=== PATIENT | female | born 1970 | race Caucasian/White ===

== ENCOUNTER 2016-07-02 15:52 | Emergency (ER) | payer BC ==
[~2016-07-02] VITALS: Ht 165.1 cm; Wt 71.9 kg
[2016-07-02 15:56] VITALS: Ht 165.1 cm; Wt 71.9 kg
--- OUTSIDE RECORDS SUMMARY | 2016-07-02 15:58 | XMS REPORT ---
Author Author Rusty Aguila Organization [employer] Address Unknown Phone Unavailable Care Team Providers Care Transportation Assistant Name Role Phone Rusty Aguila CP Unavailable Allergies No Known Allergies Problems Problem Type Condition ICD-9 Code Onset Dates Condition Status Assessment Depression with anxiety 300.4 Active Problem Cough variant asthma 493.82 Active Medications Medication Code System Code Instructions Start Date End Date Status Dosage Zolpidem Tartrate [facility] 640837 10 mg orally once a day (at bedtime) prn insomnia June 25, 2014 1 tab(s) Results No Known Results Summary Purpose [employer] Submission
--- OUTSIDE RECORDS SUMMARY | 2016-07-02 15:58 | XMS REPORT ---
Author Jeremias Ferrer Organization [employer] Address Unknown Phone Unavailable Care Team Providers Care Proofreader Name Role Phone Jeremias Aguila CP Unavailable Allergies No Known Allergies Problems Problem Type Condition ICD-9 Code Onset Dates Condition Status Problem Cough variant asthma 493.82 Active Medications No Known Medications Results No Known Results Summary Purpose [employer] Submission
--- OUTSIDE RECORDS SUMMARY | 2016-07-02 15:58 | XMS REPORT ---
Author Author Rusty Aguila Organization [employer] Address Unknown Phone Unavailable Care Team Providers Care Field Nurse Case Manager Name Role Phone Rusty Aguila CP Unavailable Allergies No Known Allergies Problems Problem Type Condition Code Onset Dates Condition Status Assessment Depression with anxiety 300.4 Active Problem Cough variant asthma 493.82 Active Medications Medication Code System Code Instructions Start Date End Date Status Dosage Zolpidem Tartrate [facility] 216146 10 mg orally once a day (at bedtime) prn insomnia June 25, 2014 1 tab(s) Results No Known Results Summary Purpose [employer] Submission
--- OUTSIDE RECORDS SUMMARY | 2016-07-02 15:58 | XMS REPORT ---
Author Author Rusty Aguila Organization [employer] Address Unknown Phone Unavailable Care Team Providers Care Stacker And Sorter Operator Name Role Phone Rusty Aguila Unavailable Allergies No Known Allergies Problems Problem Type Condition Code Onset Dates Condition Status Problem Cough variant asthma J45.991 Active Medications Medication Code System Code Instructions Start Date End Date Status Dosage Zolpidem Tartrate [facility] 047225 10 mg orally QHS PRN Feb 25, 2015 1 tab Results No Known Results Summary Purpose [employer] Submission
--- OUTSIDE RECORDS SUMMARY | 2016-07-02 15:58 | XMS REPORT ---
Author Author Benedict Lea Organization [employer] Address Unknown Phone Unavailable Care Team Providers Care [place] Name Role Phone Benedict Lea CP Unavailable Allergies, Adverse Reactions, Alerts Substance Reaction Event Type N.K.D.A. Info Not Available Non Drug Allergy Problems Problem Type Condition Code Onset Dates Condition Status Assessment Physical, Health Checkup Adult V70.0 Active Assessment Screening Lipids V77.91 Active Assessment Depression with anxiety 300.4 Active Medications Medication Code System Code Instructions Start Date End Date Status Dosage tylenol pm NDC 0 as directed Ibu-4 NDC 76527 not defined Zolpidem Tartrate NDC 527498 10 mg orally once a day (at bedtime) prn insomnia June 25, 2014 1 tab(s) TYLENOL NDC 0 500MG Oral 2 tab Procedures Procedure Coding System Code Date Comp Metabolic Panel CPT-4 88914 June 25, 2014 T4 Free CPT-4 82800 June 25, 2014 CBC with Differential WBC CPT-4 40917 June 25, 2014 Office New Level 3 CPT-4 74935 June 25, 2014 Lipid Panel CPT-4 57843 June 25, 2014 Hemoglobin A1C CPT-4 80806 June 25, 2014 Sed Rate CPT-4 62831 June 25, 2014 TSH CPT-4 81766 June 25, 2014 Vital Signs Date/Time: June 25, 2014 BMI 25.62 Index Height 65 in Weight 154 lbs Blood Pressure Systolic 127 mm Hg Cardiac Monitoring Heart Rate 111 /min Respiratory Rate 16 /min Temperature 97.9 F Blood Pressure Diastolic 82 mm Hg Results No Known Results Summary Purpose [employer] Submission
--- OUTSIDE RECORDS SUMMARY | 2016-07-02 15:58 | XMS REPORT ---
Author Author Rusty Aguila Organization [employer] Address Unknown Phone Unavailable Care Team Providers Care Machine Tool Mechanic Name Role Phone Rusty Aguila CP Unavailable Allergies No Known Allergies Problems Problem Type Condition Code Onset Dates Condition Status Problem Cough variant asthma J45.991 Active Medications No Known Medications Results No Known Results Summary Purpose [employer] Submission
--- OUTSIDE RECORDS SUMMARY | 2016-07-02 15:58 | XMS REPORT ---
Author Author Rusty Aguila Organization [employer] Address Unknown Phone Unavailable Care Team Providers Care Basting Machine Operator Name Role Phone Rusty Aguila CP Unavailable Allergies No Known Allergies Problems Problem Type Condition ICD-9 Code Onset Dates Condition Status Assessment Depression with anxiety 300.4 Active Problem Cough variant asthma 493.82 Active Medications Medication Code System Code Instructions Start Date End Date Status Dosage Zolpidem Tartrate [facility] 483616 10 mg orally once a day (at bedtime) prn insomnia June 25, 2014 1 tab(s) Results No Known Results Summary Purpose [employer] Submission
--- OUTSIDE RECORDS SUMMARY | 2016-07-02 15:58 | XMS REPORT ---
Author Author Rusty Aguila Organization [employer] Address Unknown Phone Unavailable Care Team Providers Care Hoop Puncher Name Role Phone Rusty Aguila CP Unavailable Allergies No Known Allergies Problems Problem Type Condition Code Onset Dates Condition Status Problem Cough variant asthma J45.991 Active Medications Medication Code System Code Instructions Start Date End Date Status Dosage Zolpidem Tartrate [facility] 820770 10 mg orally QHS PRN Feb 25, 2015 1 tab Results No Known Results Summary Purpose [employer] Submission
--- OUTSIDE RECORDS SUMMARY | 2016-07-02 15:58 | XMS REPORT ---
Author Benedict Escalona [facility] [employer] Address Unknown Phone Unavailable Care Team Providers Care Truck Dock Material Mover Name Role Phone Benedict Lea Unavailable Allergies No Known Allergies Problems Problem Type Condition Code Onset Dates Condition Status Assessment Depression with anxiety 300.4 Active Problem Cough variant asthma 493.82 Active Medications Medication Code System Code Instructions Start Date End Date Status Dosage Zolpidem Tartrate [facility] 401606 10 mg orally once a day (at bedtime) prn insomnia June 25, 2014 1 tab(s) Results No Known Results Summary Purpose [employer] Submission
--- OUTSIDE RECORDS SUMMARY | 2016-07-02 15:58 | XMS REPORT ---
Author Benedict Escalona [facility] [employer] Address Unknown Phone Unavailable Care Team Providers Care Automotive Power Electronics Engineer Name Role Phone Benedict Lea Unavailable Allergies No Known Allergies Problems No Known Problems Medications Medication Code System Code Instructions Start Date End Date Status Dosage Paxil [facility] 4517 20 mg orally once a day July 02, 2014 1 tab(s) Results No Known Results Summary Purpose [employer] Submission
--- OUTSIDE RECORDS SUMMARY | 2016-07-02 15:58 | XMS REPORT ---
Author Benedict Escalona [facility] [employer] Address Unknown Phone Unavailable Care Team Providers Care Director Of Music Name Role Phone Benedict Lea Unavailable Allergies No Known Allergies Problems Problem Type Condition Code Onset Dates Condition Status Assessment Depression with anxiety 300.4 Active Problem Cough variant asthma 493.82 Active Medications Medication Code System Code Instructions Start Date End Date Status Dosage Zolpidem Tartrate [facility] 697589 10 mg orally once a day (at bedtime) prn insomnia June 25, 2014 1 tab(s) Results No Known Results Summary Purpose [employer] Submission
--- NOTE | 2016-07-02 16:15 | NUR ---
PROVIDER DR. DUENAS AT BEDSIDE FOR EXAM.
[2016-07-02] MEDS ORDERED: HYDR-4246 PO (16:21)
[2016-07-02] MEDS ORDERED: PENI500T2 PO (16:21)
--- NOTE | 2016-07-02 16:21 | ERPDOC ---
Departure Disposition Decision Date: Jul 02, 2016 Disposition Decision Time: 16:19 Disposition: 01 DISCHARGED HOME, SELF-CARE Impression Impression Impression: Primary Impression: Pain, dental Severity: Mild Condition: Improved Seen By: Physician only Referrals: [facility] 1 Day Patient Instructions: Toothache (ED), ED Dental Follow-up Problems/Meds/Labs Reviewed?: Yes Medications reviewed and manag: Yes Follow up care ordered?: Yes Mental Status: Alert, Oriented Scripts Penicillin V Potassium (Penicillin V Potassium) 500 Mg Tablet 1 TAB PO QID for 10 Days, #40 TAB 0 Refills Prov: YU DUENAS DO 07/02/16 Hydrocodone/Acetaminophen ([place] 5-325 Tablet) 5-325 Tablet 1 TAB PO Q4HR Y for PAIN for 2 Days, #12 TAB 0 Refills Prov: YU DUENAS DO 07/02/16 HPI - EENT General General Chief Complaint: Toothache Stated Complaint: TOOTH ACHE Time Seen by Provider: 16:02 Source: patient Exam Limitations: no limitations HPI - EENT General Initial Comments 46-year-old female presents to the emergency department with a chief complaint of dental pain. Patient noted onset of pain in her left lower posterior teeth. Pain radiates toward the patient's ear. Pain is sharp. Pain is moderate in nature. Patient denies any other complaints or associated symptoms. There is no chest pain or shortness of breath. Patient was at home when her symptoms began. Symptoms have been persistent in nature since onset. Symptoms have had a gradual progression in nature. Patient denies any trauma or injury. Occurred At: home Onset/Timing: Gradual Allergies: Coded Allergies: No Known Allergies (Unverified , 07/02/16) Past History Past Medical History Metabolic: hypercholesterolemia Surgical History Denies Surgeries Family History Family History: Negative Social History Smoking Status: Never smoker Substance Use Type: does not use Alcohol Intake: none Review of Systems Constitutional Constitutional: DENIES: chills, fever Eyes General: DENIES: erythema, exudate Lids/Accessories: DENIES: erythema, swelling Vision: DENIES: acuity, blurring ENMT Ears: DENIES: drainage, erythema Hearing: DENIES: hearing loss Balance: DENIES: ataxia, falling to one side Sinuses: DENIES: congestion, pain Nose: DENIES: nosebleeds, pain Mouth/Throat: DENIES: painful swallowing, sore throat Teeth: other (dental caries. ), pain Jaw: DENIES: pain Cardiovascular Cardiac: DENIES: chest pain, dyspnea on exertion Rhythm/Rate: DENIES: irregular beat, palpitations Vascular: DENIES: pedal edema, unilateral swelling Pulmonary Respiratory: DENIES: cough, dyspnea, pleuritic chest pain, sputum GI Upper Abdomen: DENIES: nausea, pain, vomiting Lower Abdomen: DENIES: diarrhea, pain General: DENIES: dysuria, pain Musculoskeletal General: DENIES: pain, tenderness Integumentary Skin: DENIES: itching, rash Neurological General: DENIES: headache, numbness, weakness Psychiatric Psychiatric: DENIES: emotional instability, suicidal ideation/attempt Endocrine Endocrine: DENIES: polydipsia, polyphagia Hematologic/Lymphatic Hematologic/Lymphatic: DENIES: frequent nosebleeds, lymphadenopathy Allergic/Immunological Allergic/Immunoligical: DENIES: allergic reactions, hives Physical Exam General General Nourishment: well nourished, well developed, appears stated age, no acute distress, adult General Body Habitus: well groomed Vitals and Pain First Documented Vital Signs Date Time Temp Pulse Resp B/P Pulse Ox O2 Delivery O2 Flow Rate FiO2 07/02/16 15:56 98.3 84 16 145/79 97 Room Air Weight: Kilograms: 71.900 Height (feet): 5 Height (inches): 5.00 Triage Pain Scale: RN VS reviewed by Provider: Yes Normal Exams: Head: Normocephalic w/o trauma Eyes: Pupils are PERRLA w/ EOMI, No scleral icterus, irritation, or foreign bodies noted ENMT: No facial trauma, nasal exudates, pharyngeal erythema, or exudates are noted Dental: No fractured, loose, or missing teeth noted Neck: Full range of motion, without adenopathy, JVD, bruits or thyromegaly Chest/Resp: Clear all bennett, with good airflow, and symmetry bilaterally CV: Regular rate and rhythm, without murmur or gallop, Pulses 2+ all extremities, capillary refill, <2 seconds all ext., no pedal edema noted Abdomen: Bowel sounds positive, soft, non-tender, non-distended, no hepatosplenomegaly, masses or bruits noted Lymphatic: No lymphadenopathy, or lymphedema noted Musculoskeletal: No tenderness, or deformity noted, good range of motion, all extremities Integumentary: No rashes, hives, or bruising noted, hair and nails, without abnormality Neurologic: Patient is alert, and oriented, cranial nerves, motor/sensory/ cerebellar, exams w/o gross deficits, to observation Psychiatric: Patient exhibits, appropriate attention, emotion and affect ENMT (brief) ENMT Brief: FOUND: TM clear Comments Oral - no pharyngeal erythema. Uvula midline. Voice is normal. Handling secretions without difficulty. No tonsillar exudate. No sign of abscess. Tooth number 19 is tender to percussion. Tooth has dental caries and fillings in place already in the tooth. The side of the tooth is eroded with dental caries. There is no elevation of the tongue. No facial swelling/cellulitis. Differential Diagnoses Considering: Other (dental pain/dental caries/dental abscess/dental trauma) Progress Progress Progress Patient declines offered pain medication in the emergency Department. Patient is provided with prescriptions for Penicillin VK and [place]. She is discharged home in improved condition. She is to follow-up as instructed with her personal dentist. Patient is to return to the emergency Department if her condition worsens or changes in any manner. Patient is to follow up as instructed. She is in agreement with the current plan of management. YU DUENAS DO Jul 02, 2016 16:21
[2016-07-02] MEDS ORDERED: ATOR40TA64 PO (16:26)
[2016-07-02] MEDS ORDERED: ACET-62 PO (16:27)
[2016-07-02] MEDS ORDERED: IBUP200C62 PO (16:28)
[2016-07-02] MEDS ORDERED: PARO-38 PO (16:28)
[2016-07-02] MEDS ORDERED: MULT-933 PO (16:29)
[2016-07-02 16:31] VITALS: BP 148/70; PULSE 81; RESP 16; TEMP 98.3; O2SAT 96
--- NOTE | 2016-07-02 16:31 | NUR ---
DISCHARGE WRITTEN INSTRUCTIONS WITH [facility] AND PENICILLIN RX REVIEWED AND SENT WITH PT. PT VERBALIZES UNDERSTANDING OF DI AND MEDICATIONS, DENIES QUESTIONS. PT AMBULATES OUT OF ER WITH STEADY GAIT AT THIS TIME.
== END 2016-07-02 16:31 | disposition home or self-care (01) ==
LOC: ED 15:52
DX: K02.9 Dental caries, unspecified (principal)